=== PATIENT | female | born 1935 | race Caucasian/White ===

== ENCOUNTER → 2020-01-04 | Outpatient (CLI) | payer BC ==
[~2020-01-04] MED LIST: ACET650S21 PO; CALC1TAB58 PO; CARB15DR7 EACHEYE; DORZ10DR27 EACHEYE; FELO5TAB4 PO; GINK120T3 PO; IRON18TA PO; LOVA40TA2 PO; MULT-717 PO; NORT75CA PO; PANT40TA6 PO; PROP1DRO6 EACHEYE; RISE150T3 PO; TIMO5DRO5 EACHEYE
[2020-01-04 15:13] LABS: ALANINE AMINOTRANSFERASE 19 U/L (12-78); ANION GAP 5 mmol/L (5-15); CALCIUM 9.8 mg/dL (8.5-10.1); CHLORIDE 108 mmol/L (98-107); CREATININE 1.13 mg/dL (0.55-1.02)
[2020-01-04 15:16] LABS: ALKALINE PHOSPHATASE 81 U/L (45-117); BILIRUBIN,TOTAL 0.4 mg/dL (0.2-1.0); TOTAL PROTEIN 7.2 g/dL (6.4-8.2)
[2020-01-04 15:17] LABS: BASOPHILS % (AUTO) 1 % (0-1); EOSINOPHILS % (AUTO) 3 % (1-7); LYMPHOCYTES % (AUTO) 26 % (22-44); MEAN CORPUSCULAR HEMOGLOBIN 30.7 pg (27.0-34.8); MEAN CORPUSCULAR HGB CONC 33.6 g/dL (32.4-35.8); MEAN PLATELET VOLUME 6.7 fL (7.4-10.4); MONOCYTES % (AUTO) 8 % (2-9); NEUTROPHILS % (AUTO) 62 % (42-75); PLATELET COUNT 342 x10^3/uL (130-400); RED BLOOD COUNT 4.64 x10^6/uL (3.82-5.3); RED CELL DISTRIBUTION WIDTH 12.6 % (9.6-15.2)
[2020-01-04 15:25] LABS: MD NO
== END | disposition home or self-care (01) ==
LOC: STAR 13:54
PROVIDERS: ATTEND Urology
DX: Z01.818 Encounter for other preprocedural examination (principal); Z20.828 Contact with and (suspected) exposure to other viral communicable diseases
CPT/HCPCS: 36415; 80053; 85025; 87635; 93005

== ENCOUNTER 2020-01-11 09:55 | Inpatient (IN) | payer BC ==
[~2020-01-11] VITALS: Ht 172.7 cm; Wt 63.0 kg
[2020-01-11] MEDS ORDERED: CHLORHEXIDINE 15 ML UDC MM STA (10:02)
[2020-01-11] MEDS ORDERED: LACTATED RINGERS 1,000 ML IV ONE (10:02)
[2020-01-11] MEDS ORDERED: SODIUM CHLORIDE 0.9% 1,000 ML IV STA (10:41)
[2020-01-11] MEDS ORDERED: SODIUM CHLORIDE 0.9% 1,000 ML IV PRN (11:30)
[2020-01-11] MEDS ORDERED: EPINEPHRINE 1 MG/ML, 1ML ONE (12:04)
[2020-01-11] MEDS ORDERED: INDIGO CARMINE 0.8%, 5ML ONE (12:04)
[2020-01-11] MEDS ORDERED: THROMBIN 5,000 UNIT VIAL TP ONE (12:04)
[2020-01-11] MEDS ORDERED: BUPIVACAINE/PF 0.25% ONE (12:04)
[2020-01-11] MEDS ORDERED: FENTANYL PF 250 MCG/5ML ONE (13:08)
[2020-01-11] MEDS ORDERED: LIDOCAINE PF 2%, 5ML ONE (13:19)
[2020-01-11] MEDS ORDERED: KETAMINE 10 MG/ML, 20ML ONE (13:19)
[2020-01-11] MEDS ORDERED: SUFentanil 50 MCG/ML, 1ML ONE (14:47)
[2020-01-11] MEDS ORDERED: CEFAZOLIN 1,000 MG ONE (15:03)
[2020-01-11] MEDS ORDERED: ROCURONIUM 10MG/ML,5ML ONE (15:03)
[2020-01-11] MEDS ORDERED: SUGAMMADEX 200 MG/2 ML IVPush ONE (15:03)
[2020-01-11] MEDS ORDERED: NEOSTIGMINE 1 MG/ML, 10ML ONE (15:03)
[2020-01-11] MEDS ORDERED: SUCCINYLCHOLINE 20 MG/ML, 10ML ONE (15:03)
[2020-01-11] MEDS ORDERED: PROPOFOL 10 MG/ML, 20ML ONE (15:03)
[2020-01-11] MEDS ORDERED: GLYCOPYRROLATE 0.2MG/1ML, 5ML ONE (15:03)
[2020-01-11] MEDS ORDERED: ONDANSETRON 2MG/ML, 2ML ONE (15:03)
[2020-01-11] MEDS ORDERED: DEXAMETHASONE 4 MG/ML, 1ML ONE (15:03)
[2020-01-11] MEDS ORDERED: NALOXONE 0.4 MG/ML, 1ML ONE (15:11)
[2020-01-11] MEDS ORDERED: FENTANYL PF 100 MCG/2ML ONE ×2 (15:38→16:11)
[2020-01-11] MEDS: FENTANYL PF 100 MCG/2ML IV PRN ×3 (15:44→16:10)
[2020-01-11] MEDS ORDERED: ACETAMINOPHEN 650 MG/20.3 ML UDC ONE (15:55)
[2020-01-11] MEDS ORDERED: OXYcodone 5 MG/5 ML ORAL.SOL UDC ONE (15:56)
[2020-01-11] MEDS ORDERED: OXYcodone 5 MG/5 ML ORAL.SOL UDC PO PRN (16:00)
[2020-01-11] MEDS ORDERED: hydrALAzine 20 MG/ML, 1ML IV PRN (16:00)
[2020-01-11] MEDS ORDERED: MEPERIDINE/PF 25MG/0.5ML IVPush PRN (16:00)
[2020-01-11] MEDS ORDERED: PROMETHAZINE 25 MG/ML, 1ML IVPush PRN (16:00)
[2020-01-11] MEDS ORDERED: ONDANSETRON 2MG/ML, 2ML IVPush PRN (16:00)
[2020-01-11] MEDS ORDERED: DIPHENHYDRAMINE 50 MG/ML, 1ML IVPush PRN (16:00)
[2020-01-11] MEDS: ACETAMINOPHEN 325 MG TABLET PO SCH ×2 (16:00→22:25)
[2020-01-11] MEDS ORDERED: LABETALOL 5MG/ML, 20ML IV PRN ×2 (16:00→20:30)
[2020-01-11] MEDS ORDERED: HYDROmorphone 1 MG/ML, 1ML INJ IV PRN (16:00)
[2020-01-11] MEDS ORDERED: ONDANSETRON 2MG/ML, 2ML IV PRN (16:00)
[2020-01-11] MEDS ORDERED: ACETAMINOPHEN 325 MG TABLET PO PRN (16:00)
[2020-01-11 17:01] VITALS: BP 167/83
[2020-01-11 19:24] VITALS: BP 165/78
[2020-01-11 20:19] VITALS: BP 181/81
[2020-01-11] MEDS ORDERED: LABETALOL 20 MG/4 ML IV PRN (20:30)
[2020-01-11] MEDS ORDERED: NORTRIPTYLINE 25 MG CAPSULE PO SCH (21:00)
[2020-01-11] MEDS ORDERED: LOVASTATIN 40 MG TABLET PO SCH (21:00)
[2020-01-11] MEDS ORDERED: AMLODIPINE 5 MG TABLET PO SCH (21:00)
[2020-01-11] MEDS: OXYcodone 5 MG/5 ML ORAL.SOL UDC PO PRN (22:27)
[2020-01-12 00:06] VITALS: BP 174/73
[2020-01-12] MEDS: D5%-LACTATED RINGERS 1,000 ML IV SCH ×2 (00:21→11:43)
[2020-01-12 03:31] VITALS: BP 150/74
[2020-01-12] MEDS ORDERED: PANTOPRAZOLE 40MG TABLET PO SCH (06:00)
[2020-01-12 06:09] LABS: ANION GAP 5 mmol/L (5-15); CALCIUM 8.3 mg/dL (8.5-10.1); CHLORIDE 110 mmol/L (98-107); CREATININE 1.28 mg/dL (0.55-1.02)
[2020-01-12] MEDS: ACETAMINOPHEN 325 MG TABLET PO SCH ×3 (06:27→09:39)
[2020-01-12 07:18] VITALS: BP 137/66
[2020-01-12] MEDS ORDERED: POLYETHYLENE GLYCOL 17 GM PACKET PO SCH (09:00)
[2020-01-12] MEDS ORDERED: AMLODIPINE 5 MG TABLET PO SCH (09:00)
[2020-01-12] MEDS: OXYcodone 5 MG/5 ML ORAL.SOL UDC PO PRN (09:42)
[2020-01-12 12:33] VITALS: BP 117/60
[2020-01-12] MEDS ORDERED: HYDR-3240 PO (15:09)
[2020-01-14] MEDS ORDERED: RISEDRONATE SODIUM 150 MG HOMEMEDPO SCH (09:00)
== END 2020-01-12 15:18 | disposition home or self-care (01) | DRG 661 ==
LOC: ORIP 09:55 → 3WST 16:40 → DCLOUNGE 01-12 15:05
PROVIDERS: ADMIT Urology; ATTEND Urology
PROC: 8E0W4CZ Robotic Assisted Procedure of Trunk Region, Percutaneous Endoscopic Approach (ICD-10-PCS; 2020-01-11)
PROC: 0TT14ZZ Resection of Left Kidney, Percutaneous Endoscopic Approach (ICD-10-PCS; principal; 2020-01-11 12:00)
DX: N28.89 Other specified disorders of kidney and ureter (principal); Z88.5 Allergy status to narcotic agent; Z88.0 Allergy status to penicillin; Z88.8 Allergy status to other drugs, medicaments and biological substances; Z20.828 Contact with and (suspected) exposure to other viral communicable diseases
CPT/HCPCS: 36415; J7121; 80048; 85014; 86850; 86900; 87635; 88307; G0378; J0171; J0690; J1100; J1170; J2310; J2405; J2704; J2710; J3010; C1760; J0330; J7030

== ENCOUNTER 2020-03-29 22:08 | Inpatient (IN) | payer BC ==
[~2020-03-29] VITALS: Ht 172.7 cm; Wt 61.6 kg
[~2020-03-29 22:08] MED LIST changes: -CALC1TAB58 PO; +HYDR-1067 PO; +[UNRECOGNIZED DRUG - CODE] PO
--- NOTE | 2020-03-29 22:22 | NUR ---
INITIAL PT CONTACT. PT PRESENTS TO THE ED C/O GAS PAINS AND CHEST PAIN. "I TOOK ALL THE MEDS I NORMALLY TAKE FOR GAS PAINS BUT NOTHING SEEMED TO HELP". PT ALSO C/O SOB. PAIN BEGAN ABOUT 4 HOURS AGO. PT SITTING UPRIGHT ON GURNEY, NAD, VSS. PT'S FAMILY AT BEDSIDE. CONTINUOUS PULSE OX AND CARDIAC MONITORING IN PLACE. PT DENIES ANY NEEDS AT THIS TIME. CALL LIGHT WITHIN REACH. ERP AT BEDSIDE.
[2020-03-29] MEDS ORDERED: ONDANSETRON 2MG/ML, 2ML ONE (22:43)
[2020-03-29] MEDS ORDERED: HYDROmorphone 1 MG/ML, 1ML INJ ONE ×2 (22:43→23:14)
[2020-03-29] MEDS ORDERED: ONDANSETRON 2MG/ML, 2ML IVPush ONE (23:00)
[2020-03-29] MEDS ORDERED: HYDROmorphone 1 MG/ML, 1ML INJ IV ONE ×2 (23:00→23:30)
--- NOTE | 2020-03-29 23:07 | NUR ---
PIV PLACED PER ERP ORDER, PT TOLERATED WELL. MEDICATED PER EMAR. PT DENIES ANY NEEDS AT THIS TIME. FAMILY REMAINS AT BEDSIDE.
--- NOTE | 2020-03-29 23:20 | NUR ---
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 REQUESTING ADDITIONAL DOSE. ERP NOTIFIED AND PATIENT MEDICATED PER EMAR.
--- NOTE | 2020-03-29 23:27 | NUR ---
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 PT PLACED ON 2L SUPPLEMENTAL O2 VIA NASAL CANNULA. O2 SATURATION INCREASED TO 98%. PT RESTING COMFORTABLY AND ABLE TO DOZE OFF. PT REPORTS SIGNIFICANT PAIN RELIEF, NO ADDITIONAL NEEDS AT THIS TIME. PT UNABLE TO PROVIDE URINE SAMPLE AT THIS TIME. CALL LIGHT AND PERSONAL BELONGINGS WITHIN REACH. FAMILY AT BEDSIDE.
[2020-03-29] MEDS ORDERED: SODIUM CHLORIDE 0.9% 1,000ML IVBOLUS ONE (23:30)
[2020-03-29 23:50] LABS: BASOPHILS % (AUTO) 1 % (0-1); EOSINOPHILS % (AUTO) 1 % (1-7); LYMPHOCYTES % (AUTO) 5 % (22-44); MEAN CORPUSCULAR HEMOGLOBIN 31.1 pg (27.0-34.8); MEAN PLATELET VOLUME 7.1 fL (7.4-10.4); MONOCYTES % (AUTO) 4 % (2-9); NEUTROPHILS % (AUTO) 90 % (42-75); PLATELET COUNT 332 x10^3/uL (130-400); RED BLOOD COUNT 3.93 x10^6/uL (3.82-5.3); RED CELL DISTRIBUTION WIDTH 12.8 % (9.6-15.2)
[2020-03-30] LABS: MD NO
[2020-03-30 00:01] LABS: ALANINE AMINOTRANSFERASE 445 U/L (12-78); ALBUMIN 3.3 g/dL (3.4-5.0); ANION GAP 7 mmol/L (5-15); CALCIUM 9.1 mg/dL (8.5-10.1); CHLORIDE 108 mmol/L (98-107); CREATININE 1.44 mg/dL (0.55-1.02)
[2020-03-30 00:05] LABS: ALKALINE PHOSPHATASE 753 U/L (45-117); BILIRUBIN,TOTAL 2.8 mg/dL (0.2-1.0); TOTAL PROTEIN 6.8 g/dL (6.4-8.2); TROPONIN I < 0.015 ng/mL (0.000-0.045)
--- NOTE | 2020-03-30 00:19 | NUR ---
BREAK RN: PT RESTING IN ROOM. VS STABLE. NO ACUTE DISTRESS NOTED. FAMILY AT BEDSIDE. CALL LIGHT IN PLACE. WILL CONTINUE TO MONITOR.
[2020-03-30 00:26] LABS: MICROSCOPIC AUTO
--- NOTE | 2020-03-30 01:10 | NUR ---
report given to RHONDA Luu
--- NOTE | 2020-03-30 01:25 | NUR ---
PT RETURNED FROM CT
--- NOTE | 2020-03-30 02:05 | NUR ---
PT SITTING UPIGHT ON GURNEY, RESTING COMFORTABLY WITH EYES CLOSED. PT REPORTS NO PAIN AND DENIES ANY NEEDS AT THIS TIME. CALL LIGHT IN REACH. AT BEDSIDE.
[2020-03-30] MEDS ORDERED: ONDANSETRON 2MG/ML, 2ML IVPush PRN ×2 (02:30→03:30)
--- NOTE | 2020-03-30 02:50 | NUR ---
Pt to be admitted to [facility], room 336. Report called to DERIC.
[2020-03-30 03:16] VITALS: BP 153/82
[2020-03-30] MEDS ORDERED: hydrALAzine 20 MG/ML, 1ML IVPush PRN (03:30)
[2020-03-30] MEDS ORDERED: PROMETHAZINE 25 MG/ML, 1ML IM PRN (03:30)
[2020-03-30] MEDS ORDERED: DOCUSATE 100 MG CAPSULE PO PRN (03:30)
[2020-03-30] MEDS ORDERED: ONDANSETRON ODT 4 MG PO PRN (03:30)
[2020-03-30] MEDS ORDERED: HYDROmorphone 2 MG/ML, 1ML IVPush PRN (03:30)
[2020-03-30] MEDS ORDERED: POLYETHYLENE GLYCOL 17 GM PACKET PO PRN (03:30)
[2020-03-30] MEDS ORDERED: BISACODYL 10 MG SUPP PR PRN (03:30)
[2020-03-30] MEDS: D5%-0.9% NACL 1,000 ML IV SCH ×2 (03:58→13:30)
[2020-03-30 04:29] LABS: INTERNATIONAL NORMALIZED RATIO 1.02 (0.93-1.1); PROTHROMBIN TIME 10.8 Seconds (9.6-11.5)
[2020-03-30 06:36] VITALS: BP 158/79
[2020-03-30] MEDS: FERROUS SULFATE 325 MG TABLET PO SCH (08:07)
[2020-03-30] MEDS: NORTRIPTYLINE 25 MG CAPSULE PO SCH (08:08)
[2020-03-30] MEDS: AMLODIPINE 5 MG TABLET PO SCH (08:08)
[2020-03-30] MEDS: MULTIVITAMIN 1 TABLET PO SCH (08:09)
[2020-03-30] MEDS: CALCIUM/VITAMIN D3 250-125 TABLET PO SCH ×3 (08:09→20:43)
[2020-03-30] MEDS ORDERED: AMLODIPINE 5 MG TABLET PO SCH (09:00)
[2020-03-30] MEDS: PANTOPRAZOLE 40MG TABLET PO SCH (09:00)
[2020-03-30] MEDS: TIMOLOL OPHTH 0.5%, 5ML EACHEYE SCH (09:00)
[2020-03-30] MEDS: OXYcodone IR 5MG TABLET PO PRN (09:05)
[2020-03-30 13:13] VITALS: BP 169/81
[2020-03-30 19:49] VITALS: BP 111/68
[2020-03-30] MEDS ORDERED: SODIUM CHLORIDE 0.9% 500 ML IV SCH (20:30)
[2020-03-30] MEDS: LOVASTATIN 40 MG TABLET PO SCH ×2 (20:39→20:42)
[2020-03-31 00:27] VITALS: BP 102/62
[2020-03-31 05:19] LABS: ALANINE AMINOTRANSFERASE 234 U/L (12-78); ALBUMIN 2.3 g/dL (3.4-5.0); ANION GAP 15 mmol/L (5-15); CHLORIDE 113 mmol/L (98-107); CHOLESTEROL, TOTAL 74 mg/dL (140-239); CREATININE 1.76 mg/dL (0.55-1.02)
[2020-03-31 05:26] LABS: CALCIUM 7.9 mg/dL (8.5-10.1)
[2020-03-31 05:27] LABS: ALKALINE PHOSPHATASE 452 U/L (45-117); BILIRUBIN,TOTAL 4.1 mg/dL (0.2-1.0); CHOL/HDL RATIO 3.7; HDL CHOL % 27 % (28-40); HDL CHOLESTEROL (DIRECT) 20 mg/dL (40-60); LDL CHOLESTEROL,CALCULATED 25 mg/dL (54-169); LDL/HDL RATIO 1.3 (0.5-3.0); TOTAL PROTEIN 5.2 g/dL (6.4-8.2); TRIGLYCERIDES 145 mg/dL (50-200); VLDL CHOLESTEROL 29 mg/dL (0-25)
[2020-03-31 05:37] LABS: MEAN CORPUSCULAR HEMOGLOBIN 30.4 pg (27.0-34.8); MEAN CORPUSCULAR HGB CONC 33.3 g/dL (32.4-35.8); MEAN PLATELET VOLUME 7.4 fL (7.4-10.4); PLATELET COUNT 207 x10^3/uL (130-400); RED CELL DISTRIBUTION WIDTH 13.4 % (9.6-15.2)
[2020-03-31 06:18] LABS: MD YES
[2020-03-31 06:20] LABS: <RBC MORPHOLOGY> NORMAL; BAND#(MANUAL) 5.97 x10^3/uL; BANDS%(MANUAL) 27 % (0-7); LYMPH#(MANUAL) 1.11 x10^3/uL (1-3.4); LYMPHS% (MANUAL) 5 % (22-44); METAMYELOCYTES# (MANUAL) 0.66 x10^3/uL (0-0); METAMYELOCYTES% (MANUAL) 3 % (0-1); MONOS#(MANUAL) 1.11 x10^3/uL (0.3-2.7); MONOS% (MANUAL) 5 % (2-9); SEG#(MANUAL) 13.26 x10^3/uL (1.8-6.8); SEGS% (MANUAL) 60 % (42-75)
[2020-03-31 06:21] LABS: <PLATELET ESTIMATE> ADEQUATE; <PLT MORPHOLOGY> NORMAL PLT MORPH; PMNS WITH VACUOLES 1+
[2020-03-31] MEDS: D5%-0.9% NACL 1,000 ML IV SCH (06:35)
[2020-03-31] MEDS: CEFTRIAXONE PMX 1GM/50ML 50 ML IV SCH (06:45)
[2020-03-31] MEDS ORDERED: PROPOFOL 50 ML ONE (07:27)
[2020-03-31] MEDS ORDERED: FENTANYL PF 100 MCG/2ML ONE (07:27)
[2020-03-31] MEDS ORDERED: MIDAZOLAM 1 MG/ML, 2ML ONE (07:27)
[2020-03-31] MEDS ORDERED: ROCURONIUM 10MG/ML,5ML ONE (07:29)
[2020-03-31] MEDS ORDERED: ONDANSETRON 2MG/ML, 2ML ONE (07:29)
[2020-03-31] MEDS ORDERED: SUCCINYLCHOLINE 20 MG/ML, 10ML ONE (07:29)
[2020-03-31] MEDS ORDERED: OMNIPAQUE 350 MG/ML, 50 ML BOTTLE ONE (07:30)
[2020-03-31] MEDS ORDERED: MAGNESIUM SULFATE PMX 2GM/50ML 50 ML IV ONE (07:30)
[2020-03-31] MEDS ORDERED: MEPERIDINE/PF 25MG/0.5ML IVPush PRN (08:00)
[2020-03-31] MEDS ORDERED: EPHEDRINE 50 MG/ML, 1ML IM PRN (08:00)
[2020-03-31] MEDS ORDERED: EPHEDRINE 50 MG/ML, 1ML IVPush PRN (08:00)
[2020-03-31] MEDS ORDERED: PROMETHAZINE 25 MG/ML, 1ML IVPush PRN (08:00)
[2020-03-31] MEDS ORDERED: FENTANYL PF 100 MCG/2ML IV PRN (08:00)
[2020-03-31] MEDS ORDERED: DIPHENHYDRAMINE 50 MG/ML, 1ML IVPush PRN (08:00)
[2020-03-31] MEDS ORDERED: HYDROmorphone 1 MG/ML, 1ML INJ IVPush PRN (08:00)
[2020-03-31] MEDS ORDERED: OXYcodone 5 MG/5 ML ORAL.SOL UDC PO PRN (08:00)
[2020-03-31] MEDS ORDERED: DIAZEPAM 5 MG/ML, 2ML IVPush PRN (08:00)
[2020-03-31] MEDS ORDERED: ONDANSETRON 2MG/ML, 2ML IVPush PRN (08:00)
[2020-03-31] MEDS: CALCIUM/VITAMIN D3 250-125 TABLET PO SCH ×2 (09:00→20:47)
[2020-03-31] MEDS: PANTOPRAZOLE 40MG TABLET PO SCH (09:39)
[2020-03-31] MEDS: NORTRIPTYLINE 25 MG CAPSULE PO SCH (09:40)
[2020-03-31] MEDS: AMLODIPINE 5 MG TABLET PO SCH (09:40)
[2020-03-31] MEDS: MULTIVITAMIN 1 TABLET PO SCH (09:41)
[2020-03-31] MEDS: FERROUS SULFATE 325 MG TABLET PO SCH (09:51)
[2020-03-31 10:09] VITALS: BP 105/65
[2020-03-31] MEDS: TIMOLOL OPHTH 0.5%, 5ML EACHEYE SCH (10:26)
[2020-03-31] MEDS: METRONIDAZOLE PMX 500MG/100ML 100 ML IV SCH ×3 (10:26→23:05)
[2020-03-31 15:42] VITALS: BP 94/54
[2020-03-31 18:52] VITALS: BP 111/71
[2020-03-31] MEDS: LOVASTATIN 40 MG TABLET PO SCH (20:48)
[2020-04-01 02:32] VITALS: BP 107/60
[2020-04-01] MEDS: METRONIDAZOLE PMX 500MG/100ML 100 ML IV SCH ×4 (05:00→23:31)
[2020-04-01 05:18] LABS: MEAN CORPUSCULAR HEMOGLOBIN 30.9 pg (27.0-34.8); MEAN CORPUSCULAR HGB CONC 34.2 g/dL (32.4-35.8); MEAN PLATELET VOLUME 7.7 fL (7.4-10.4); PLATELET COUNT 195 x10^3/uL (130-400); RED BLOOD COUNT 3.23 x10^6/uL (3.82-5.3); RED CELL DISTRIBUTION WIDTH 13.7 % (9.6-15.2)
[2020-04-01 05:25] LABS: ALANINE AMINOTRANSFERASE 164 U/L (12-78); ALBUMIN 2.2 g/dL (3.4-5.0); ANION GAP 9 mmol/L (5-15); CHLORIDE 111 mmol/L (98-107); CREATININE 1.36 mg/dL (0.55-1.02)
[2020-04-01 05:26] LABS: ALKALINE PHOSPHATASE 414 U/L (45-117); BILIRUBIN,TOTAL 2.4 mg/dL (0.2-1.0); TOTAL PROTEIN 5.1 g/dL (6.4-8.2)
[2020-04-01 05:50] LABS: MD YES
[2020-04-01 05:52] LABS: <PLATELET ESTIMATE> ADEQUATE; <PLT MORPHOLOGY> NORMAL PLT MORPH; <RBC MORPHOLOGY> NORMAL; BANDS%(MANUAL) 9 % (0-7); BASOS#(MANUAL) 0.17 x10^3/uL (0-0.1); BASOS% (MANUAL) 1 % (0-1); EOS#(MANUAL) 0.17 x10^3/uL (0.0-0.4); EOS% (MANUAL) 1 % (1-7); LYMPHS% (MANUAL) 3 % (22-44); METAMYELOCYTES# (MANUAL) 0.17 x10^3/uL (0-0); METAMYELOCYTES% (MANUAL) 1 % (0-1); MONOS#(MANUAL) 0.17 x10^3/uL (0.3-2.7); MONOS% (MANUAL) 1 % (2-9); SEG#(MANUAL) 14.03 x10^3/uL (1.8-6.8); SEGS% (MANUAL) 84 % (42-75)
[2020-04-01] MEDS ORDERED: LACTATED RINGERS 1,000 ML IV SCH (06:00)
[2020-04-01] MEDS: CEFTRIAXONE PMX 1GM/50ML 50 ML IV SCH (06:24)
[2020-04-01] MEDS ORDERED: CHLORHEXIDINE 15 ML UDC MM ONE (06:30)
[2020-04-01] MEDS ORDERED: CHLORHEXIDINE 15 ML UDC ONE (06:31)
[2020-04-01] MEDS ORDERED: BUPIVACAINE/PF 0.5% ONE (06:35)
[2020-04-01] MEDS ORDERED: EPINEPHRINE 1 MG/ML, 1ML ONE (06:35)
[2020-04-01] MEDS ORDERED: FENTANYL PF 250 MCG/5ML ONE (06:39)
[2020-04-01] MEDS ORDERED: MIDAZOLAM 1 MG/ML, 2ML ONE (06:39)
[2020-04-01] MEDS ORDERED: DEXAMETHASONE 4 MG/ML, 1ML ONE (07:04)
[2020-04-01] MEDS ORDERED: LIDOCAINE 2%, 6 ML JEL.PF.APP MM ONE (07:04)
[2020-04-01] MEDS ORDERED: DIPHENHYDRAMINE 50 MG/ML, 1ML IVPush PRN (07:30)
[2020-04-01] MEDS ORDERED: ONDANSETRON 2MG/ML, 2ML IVPush PRN (07:30)
[2020-04-01] MEDS ORDERED: EPHEDRINE 50 MG/ML, 1ML IVPush PRN (07:30)
[2020-04-01] MEDS ORDERED: LORazepam 2 MG/ML, 1ML IVPush PRN (07:30)
[2020-04-01] MEDS ORDERED: METHOCARBAMOL 1,000 MG in DEXTROSE 5% 100 ML IV PRN (07:30)
[2020-04-01] MEDS ORDERED: HALOPERIDOL 5 MG/ML IV PRN (07:30)
[2020-04-01] MEDS ORDERED: ACETAMINOPHEN 325 MG TABLET PO PRN (07:30)
[2020-04-01] MEDS ORDERED: LABETALOL 5MG/ML, 20ML IV PRN (07:30)
[2020-04-01] MEDS ORDERED: FENTANYL PF 100 MCG/2ML IV PRN (07:30)
[2020-04-01] MEDS ORDERED: hydrALAzine 20 MG/ML, 1ML IV PRN (07:30)
[2020-04-01] MEDS ORDERED: HYDROmorphone 1 MG/ML, 1ML INJ IVPush PRN (07:30)
[2020-04-01] MEDS ORDERED: OXYcodone 5 MG/5 ML ORAL.SOL UDC PO PRN (07:30)
[2020-04-01] MEDS ORDERED: PROPOFOL 10 MG/ML, 20ML ONE (07:34)
[2020-04-01] MEDS ORDERED: ROCURONIUM 10MG/ML,5ML ONE (07:34)
[2020-04-01] MEDS ORDERED: GLYCOPYRROLATE 0.2MG/1ML, 5ML ONE (07:34)
[2020-04-01] MEDS ORDERED: ONDANSETRON 2MG/ML, 2ML ONE (07:34)
[2020-04-01] MEDS ORDERED: NEOSTIGMINE 1 MG/ML, 10ML ONE (07:34)
[2020-04-01] MEDS ORDERED: SUCCINYLCHOLINE 20 MG/ML, 10ML ONE (07:34)
[2020-04-01] MEDS ORDERED: CEFAZOLIN 1,000 MG ONE (07:34)
[2020-04-01] MEDS: CALCIUM/VITAMIN D3 250-125 TABLET PO SCH ×2 (09:00→19:47)
[2020-04-01] MEDS: FERROUS SULFATE 325 MG TABLET PO SCH (09:00)
[2020-04-01] MEDS: TIMOLOL OPHTH 0.5%, 5ML EACHEYE SCH (09:00)
[2020-04-01 09:09] VITALS: BP 119/72
[2020-04-01] MEDS: MULTIVITAMIN 1 TABLET PO SCH (10:34)
[2020-04-01] MEDS: PANTOPRAZOLE 40MG TABLET PO SCH (10:34)
[2020-04-01] MEDS: NORTRIPTYLINE 25 MG CAPSULE PO SCH (10:35)
[2020-04-01] MEDS: AMLODIPINE 5 MG TABLET PO SCH (10:36)
[2020-04-01] MEDS: OXYcodone IR 5MG TABLET PO PRN ×2 (10:37→19:48)
[2020-04-01 15:22] VITALS: BP 126/80
[2020-04-01 18:42] VITALS: BP 119/72
[2020-04-01] MEDS: LOVASTATIN 40 MG TABLET PO SCH (19:48)
[2020-04-02 00:09] VITALS: BP 124/72
[2020-04-02] MEDS: METRONIDAZOLE PMX 500MG/100ML 100 ML IV SCH (05:18)
[2020-04-02] MEDS: OXYcodone IR 5MG TABLET PO PRN ×2 (06:03→22:21)
[2020-04-02] MEDS: CEFTRIAXONE PMX 1GM/50ML 50 ML IV SCH (06:28)
[2020-04-02 06:55] VITALS: BP 121/70
[2020-04-02 07:33] LABS: MEAN CORPUSCULAR HEMOGLOBIN 30.7 pg (27.0-34.8); MEAN PLATELET VOLUME 7.8 fL (7.4-10.4); PLATELET COUNT 207 x10^3/uL (130-400); RED BLOOD COUNT 3.18 x10^6/uL (3.82-5.3); RED CELL DISTRIBUTION WIDTH 13.6 % (9.6-15.2)
[2020-04-02] MEDS: TIMOLOL OPHTH 0.5%, 5ML EACHEYE SCH (07:40)
[2020-04-02 07:45] LABS: ALANINE AMINOTRANSFERASE 91 U/L (12-78); ALBUMIN 2.1 g/dL (3.4-5.0); ANION GAP 10 mmol/L (5-15); CHLORIDE 113 mmol/L (98-107); CREATININE 1.17 mg/dL (0.55-1.02)
[2020-04-02 07:47] LABS: ALKALINE PHOSPHATASE 380 U/L (45-117); BILIRUBIN,TOTAL 1.1 mg/dL (0.2-1.0); TOTAL PROTEIN 5.1 g/dL (6.4-8.2)
[2020-04-02 07:56] LABS: MD YES
[2020-04-02 08:38] LABS: <PLATELET ESTIMATE> ADEQUATE; <PLT MORPHOLOGY> NORMAL PLT MORPH; <RBC MORPHOLOGY> NORMAL; BAND#(MANUAL) 0.94 x10^3/uL; BANDS%(MANUAL) 5 % (0-7); LYMPHS% (MANUAL) 8 % (22-44); MONOS#(MANUAL) 0.37 x10^3/uL (0.3-2.7); MONOS% (MANUAL) 2 % (2-9); MYELOCYTES# (MANUAL) 0.19 x10^3/uL (0-0); MYELOCYTES% (MANUAL) 1 % (0-0); REACTIVE LYMPHS # (MANUAL) 0.19 x10^3/uL (0-0); REACTIVE LYMPHS % (MANUAL) 1 % (0-0); SEG#(MANUAL) 15.52 x10^3/uL (1.8-6.8); SEGS% (MANUAL) 83 % (42-75)
[2020-04-02] MEDS: CALCIUM/VITAMIN D3 250-125 TABLET PO SCH ×2 (09:00→21:00)
[2020-04-02] MEDS: MULTIVITAMIN 1 TABLET PO SCH (09:06)
[2020-04-02] MEDS: NORTRIPTYLINE 25 MG CAPSULE PO SCH (09:07)
[2020-04-02] MEDS: AMLODIPINE 5 MG TABLET PO SCH (09:07)
[2020-04-02] MEDS: PANTOPRAZOLE 40MG TABLET PO SCH (09:07)
[2020-04-02] MEDS: PIPERACILLIN/TAZO/PMX 4.5GM 100 ML IV SCH ×3 (11:24→22:25)
[2020-04-02] MEDS: FERROUS SULFATE 325 MG TABLET PO SCH (11:24)
[2020-04-02 14:05] VITALS: BP 97/56
[2020-04-02 18:32] VITALS: BP 129/81
[2020-04-02 18:38] LABS: MEAN CORPUSCULAR HEMOGLOBIN 30.4 pg (27.0-34.8); MEAN CORPUSCULAR HGB CONC 33.3 g/dL (32.4-35.8); MEAN PLATELET VOLUME 7.8 fL (7.4-10.4); PLATELET COUNT 247 x10^3/uL (130-400); RED BLOOD COUNT 3.55 x10^6/uL (3.82-5.3); RED CELL DISTRIBUTION WIDTH 13.6 % (9.6-15.2)
[2020-04-02 18:49] LABS: ALANINE AMINOTRANSFERASE 78 U/L (12-78); ALBUMIN 2.3 g/dL (3.4-5.0); ANION GAP 7 mmol/L (5-15); CALCIUM 8.3 mg/dL (8.5-10.1); CHLORIDE 109 mmol/L (98-107); CREATININE 1.32 mg/dL (0.55-1.02)
[2020-04-02 18:51] LABS: ALKALINE PHOSPHATASE 390 U/L (45-117); BILIRUBIN,TOTAL 1.2 mg/dL (0.2-1.0); TOTAL PROTEIN 5.6 g/dL (6.4-8.2)
[2020-04-02 19:23] LABS: MD YES
[2020-04-02 19:29] LABS: <RBC MORPHOLOGY> NORMAL; BAND#(MANUAL) 1.38 x10^3/uL; BANDS%(MANUAL) 8 % (0-7); LYMPH#(MANUAL) 1.04 x10^3/uL (1-3.4); LYMPHS% (MANUAL) 6 % (22-44); METAMYELOCYTES# (MANUAL) 0.35 x10^3/uL (0-0); METAMYELOCYTES% (MANUAL) 2 % (0-1); MONOS#(MANUAL) 0.52 x10^3/uL (0.3-2.7); MONOS% (MANUAL) 3 % (2-9); MYELOCYTES# (MANUAL) 0.17 x10^3/uL (0-0); MYELOCYTES% (MANUAL) 1 % (0-0); SEG#(MANUAL) 13.84 x10^3/uL (1.8-6.8); SEGS% (MANUAL) 80 % (42-75)
[2020-04-02 19:30] LABS: <PLATELET ESTIMATE> ADEQUATE; <PLT MORPHOLOGY> NORMAL PLT MORPH
[2020-04-02] MEDS: LOVASTATIN 40 MG TABLET PO SCH (22:21)
[2020-04-03 00:32] VITALS: BP 109/63
[2020-04-03 04:57] VITALS: BP 121/63
[2020-04-03] MEDS: PIPERACILLIN/TAZO/PMX 4.5GM 100 ML IV SCH ×2 (04:58→11:17)
[2020-04-03] MEDS: PANTOPRAZOLE 40MG TABLET PO SCH (08:15)
[2020-04-03] MEDS: MULTIVITAMIN 1 TABLET PO SCH (08:15)
[2020-04-03] MEDS: FERROUS SULFATE 325 MG TABLET PO SCH (08:15)
[2020-04-03] MEDS: NORTRIPTYLINE 25 MG CAPSULE PO SCH (08:15)
[2020-04-03] MEDS: AMLODIPINE 5 MG TABLET PO SCH (08:15)
[2020-04-03] MEDS: CALCIUM/VITAMIN D3 250-125 TABLET PO SCH ×2 (08:15→20:00)
[2020-04-03] MEDS: TIMOLOL OPHTH 0.5%, 5ML EACHEYE SCH (08:16)
[2020-04-03 09:34] VITALS: BP 107/68
[2020-04-03 12:44] VITALS: BP 120/70
[2020-04-03] MEDS ORDERED: DORZ10DR7 EACHEYE (17:07)
[2020-04-03] MEDS: TIMOLOL EACHEYE SCH (17:31)
[2020-04-03] MEDS: DORZOLAMIDE EACHEYE SCH (17:31)
[2020-04-03] MEDS: OXYcodone IR 5MG TABLET PO PRN (19:59)
[2020-04-03] MEDS: [UNRECOGNIZED DRUG - OTHER] IV SCH (19:59)
[2020-04-03] MEDS: LOVASTATIN 40 MG TABLET PO SCH (20:00)
[2020-04-03 20:18] VITALS: BP 139/76
[2020-04-04 01:14] VITALS: BP 145/71
[2020-04-04] MEDS: [UNRECOGNIZED DRUG - OTHER] IV SCH ×2 (03:24→08:44)
[2020-04-04] MEDS: DORZOLAMIDE EACHEYE SCH (05:33)
[2020-04-04] MEDS: TIMOLOL EACHEYE SCH (05:33)
[2020-04-04 07:17] VITALS: BP 158/75
[2020-04-04] MEDS: PANTOPRAZOLE 40MG TABLET PO SCH (08:45)
[2020-04-04] MEDS: FERROUS SULFATE 325 MG TABLET PO SCH (08:45)
[2020-04-04] MEDS: CALCIUM/VITAMIN D3 250-125 TABLET PO SCH (08:45)
[2020-04-04] MEDS: NORTRIPTYLINE 25 MG CAPSULE PO SCH (08:45)
[2020-04-04] MEDS: MULTIVITAMIN 1 TABLET PO SCH (08:45)
[2020-04-04] MEDS: AMLODIPINE 5 MG TABLET PO SCH (08:45)
[2020-04-04] MEDS ORDERED: TIMOLOL MALEATE EACHEYE SCH (09:00)
[2020-04-04] MEDS ORDERED: DORZOLAMIDE HCL EACHEYE SCH (09:00)
[2020-04-04 10:12] LABS: MEAN CORPUSCULAR HEMOGLOBIN 30.7 pg (27.0-34.8); MEAN CORPUSCULAR HGB CONC 33.9 g/dL (32.4-35.8); MEAN PLATELET VOLUME 7.6 fL (7.4-10.4); PLATELET COUNT 269 x10^3/uL (130-400); RED BLOOD COUNT 3.72 x10^6/uL (3.82-5.3); RED CELL DISTRIBUTION WIDTH 13.5 % (9.6-15.2)
[2020-04-04 10:21] LABS: ALANINE AMINOTRANSFERASE 50 U/L (12-78); ALBUMIN 2.1 g/dL (3.4-5.0); ANION GAP 8 mmol/L (5-15); CALCIUM 7.9 mg/dL (8.5-10.1); CHLORIDE 109 mmol/L (98-107)
[2020-04-04 10:23] LABS: ALKALINE PHOSPHATASE 392 U/L (45-117); BILIRUBIN,TOTAL 1.2 mg/dL (0.2-1.0); TOTAL PROTEIN 5.3 g/dL (6.4-8.2)
[2020-04-04 10:57] LABS: MD YES
[2020-04-04 11:00] LABS: BAND#(MANUAL) 1.28 x10^3/uL; BANDS%(MANUAL) 10 % (0-7); EOS#(MANUAL) 0.64 x10^3/uL (0.0-0.4); EOS% (MANUAL) 5 % (1-7); LYMPHS% (MANUAL) 7 % (22-44); METAMYELOCYTES# (MANUAL) 0.13 x10^3/uL (0-0); METAMYELOCYTES% (MANUAL) 1 % (0-1); MONOS#(MANUAL) 0.51 x10^3/uL (0.3-2.7); MONOS% (MANUAL) 4 % (2-9); REACTIVE LYMPHS # (MANUAL) 0.13 x10^3/uL (0-0); REACTIVE LYMPHS % (MANUAL) 1 % (0-0); SEG#(MANUAL) 9.22 x10^3/uL (1.8-6.8); SEGS% (MANUAL) 72 % (42-75)
[2020-04-04 11:01] LABS: <PLATELET ESTIMATE> ADEQUATE; <PLT MORPHOLOGY> NORMAL PLT MORPH; <RBC MORPHOLOGY> NORMAL; TOXIC GRAN 1+
[2020-04-04 11:05] LABS: PMNS WITH VACUOLES 1+
[2020-04-04 12:12] VITALS: BP 145/71
[2020-04-04] MEDS ORDERED: CEFD300C37 PO (13:05)
[2020-04-04] MEDS ORDERED: METR-90 PO (13:05)
[2020-04-04] MEDS ORDERED: DOCU-186 PO (13:05)
[2020-04-04] MEDS ORDERED: OXYC5TAB3 PO (13:05)
== END 2020-04-04 16:00 | disposition home or self-care (01) | DRG 853 ==
LOC: ED 23:33 → EDIP 03-30 02:17 → 3N 03-30 03:01
PROVIDERS: ADMIT Internal Medicine; ATTEND Hospitalist
PROC: 0F798ZZ Dilation of Common Bile Duct, Via Natural or Artificial Opening Endoscopic (ICD-10-PCS; 2020-03-31)
PROC: BF131ZZ Fluoroscopy of Gallbladder and Bile Ducts using Low Osmolar Contrast (ICD-10-PCS; 2020-03-31)
PROC: 0FC98ZZ Extirpation of Matter from Common Bile Duct, Via Natural or Artificial Opening Endoscopic (ICD-10-PCS; 2020-03-31)
PROC: 0FT44ZZ Resection of Gallbladder, Percutaneous Endoscopic Approach (ICD-10-PCS; principal; 2020-04-01 11:00)
DX: A41.9 Sepsis, unspecified organism (principal); E43 Unspecified severe protein-calorie malnutrition; N17.0 Acute kidney failure with tubular necrosis; K80.51 Calculus of bile duct without cholangitis or cholecystitis with obstruction; E78.5 Hyperlipidemia, unspecified; I10 Essential (primary) hypertension; J44.9 Chronic obstructive pulmonary disease, unspecified; Z20.822 Contact with and (suspected) exposure to COVID-19; K21.9 Gastro-esophageal reflux disease without esophagitis; Z90.710 Acquired absence of both cervix and uterus; Z68.20 Body mass index [BMI] 20.0-20.9, adult; Z90.5 Acquired absence of kidney; Z88.0 Allergy status to penicillin; Z88.5 Allergy status to narcotic agent
CPT/HCPCS: 36415; 74328; J7042; S0020; 71045; 74176; 74181; 76700; 80053; 80061; 81001; 83036; 83690; 83735; 84100; 84443; 84484; 85025; 85610; 87040; 87086; 87635; 88304; 93005; G0378; J0171; J0690; J0696; J1100; J1170; J2250; J2405; J2543; J2704; J2710; J3010; Q9967; C1769; J0330; J3475; J7030; J7040; J7120

== ENCOUNTER 2020-04-15 11:34 | Emergency (ER) | payer BC ==
[~2020-04-15] VITALS: Ht 172.7 cm; Wt 54.7 kg
[~2020-04-15 11:34] MED LIST changes: +CEFD300C37 PO; +DOCU-186 PO; +DORZ10DR7 EACHEYE; +METR-90 PO; +OXYC5TAB98 PO
[2020-04-15 13:22] LABS: BASOPHILS % (AUTO) 1 % (0-1); EOSINOPHILS % (AUTO) 2 % (1-7); LYMPHOCYTES % (AUTO) 15 % (22-44); MEAN CORPUSCULAR HEMOGLOBIN 30.6 pg (27.0-34.8); MEAN CORPUSCULAR HGB CONC 33.4 g/dL (32.4-35.8); MEAN PLATELET VOLUME 7.1 fL (7.4-10.4); MONOCYTES % (AUTO) 12 % (2-9); NEUTROPHILS % (AUTO) 71 % (42-75); PLATELET COUNT 551 x10^3/uL (130-400); RED BLOOD COUNT 4.09 x10^6/uL (3.82-5.3); RED CELL DISTRIBUTION WIDTH 13.6 % (9.6-15.2)
[2020-04-15 13:26] LABS: MD NO
[2020-04-15 13:34] LABS: ALANINE AMINOTRANSFERASE 38 U/L (12-78); ALBUMIN 3.1 g/dL (3.4-5.0); ANION GAP 5 mmol/L (5-15); CALCIUM 9.2 mg/dL (8.5-10.1); CHLORIDE 105 mmol/L (98-107); CREATININE 1.33 mg/dL (0.55-1.02)
[2020-04-15 13:39] LABS: ALKALINE PHOSPHATASE 231 U/L (45-117); BILIRUBIN,TOTAL 0.6 mg/dL (0.2-1.0); TOTAL PROTEIN 6.8 g/dL (6.4-8.2); TROPONIN I < 0.015 ng/mL (0.000-0.045)
[2020-04-15] MEDS ORDERED: SODIUM CHLORIDE FLUSH 10ML SYR IVF ONE (14:30)
[2020-04-15] MEDS ORDERED: SODIUM CHLORIDE 0.9% 1,000ML IVBOLUS ONE (14:30)
[2020-04-15 15:20] VITALS: BP 144/76
[2020-04-15] MEDS ORDERED: OMNIPAQUE 350 MG/ML, 75ML BOTTLE ONE (16:06)
--- NOTE | 2020-04-15 16:44 | NUR ---
TASK RN: DC EDUCATION PROVIDED, PT DEMONSTRATES UNDERSTANDING. PT AMBULATED STEADILY TO WHEELCHAIR AT DOORWAY. WHEELED TO DC WITH RN. SPOUSE TO TRANSPORT PT HOME.
== END 2020-04-15 16:47 | disposition home or self-care (01) ==
LOC: ED 16:30
DX: R06.00 Dyspnea, unspecified (principal); R42 Dizziness and giddiness; I10 Essential (primary) hypertension; Z90.49 Acquired absence of other specified parts of digestive tract
CPT/HCPCS: 36415; 71045; 71275; 80053; 84484; 85025; 85379; 93005; 96360; 99285; J7030; Q9967